=== PATIENT | male | born 2000 | race African-American/Black ===

== ENCOUNTER 2025-02-05 18:31 | Emergency (ER) | payer OTHER ==
[~2025-02-05] VITALS: Wt 90.7 kg
[~2025-02-05 18:31] MED LIST: DDAVP0.1 MG PO; KEFLEX500 MG PO; MOTRIN400 MG PO; RISPERDAL1 MG PO; VYVANSE60 MG PO
[2025-02-05] MEDS ORDERED: METHOCARBAMOL 750 MG TAB PO ONE (19:00)
[2025-02-05] MEDS ORDERED: NAPROXEN 250 MG TAB PO ONE (19:00)
[2025-02-05 21:22] LABS: BILIRUBIN Negative (Negative); BLOOD Trace-Lysed (Negative); CLARITY Clear (Clear); COLOR Dark Yellow (Yellow); KETONE Trace (Negative); LEUKO ESTERASE Negative (Negative); NITRITE Negative (Negative); PH 5.5 (4.5-8.0); SPECIFIC GRAVITY 1.015 (1.001-1.030); UROBILINOGEN 1.0 E.U./dl (0.0-1.0)
[2025-02-05] MEDS ORDERED: METHOCARBAMOL750 M1 PO (21:33)
[2025-02-05] MEDS ORDERED: NAPROSYN500 MG PO (21:33)
[2025-02-05 21:34] LABS: MUCOUS 2+
== END 2025-02-05 22:00 | disposition home or self-care (01) ==
LOC: ED 18:31
PROVIDERS: Nurse Practitioner Family
DX: S06.0X0A Concussion without loss of consciousness, initial encounter (principal); S40.022A Contusion of left upper arm, initial encounter; S13.4XXA Sprain of ligaments of cervical spine, initial encounter; M54.50 Low back pain, unspecified; R11.10 Vomiting, unspecified; R07.89 Other chest pain; V43.52XA Car driver injured in collision with other type car in traffic accident, initial encounter; Y93.I9 Activity, other involving external motion; Y92.488 Other paved roadways as the place of occurrence of the external cause; Y99.8 Other external cause status